=== PATIENT | female | born 1940 | race Caucasian/White ===

== ENCOUNTER → 2017-05-30 | Day surgery (SDC) | payer MEDICARE, OTHER ==
[2017-05-27 15:13] LABS: BASOPHILS # (AUTO) 0.1 (0.0-0.1); BASOPHILS % 0.7 % (0.0-1.0); EOSINOPHILS # (AUTO) 0.3 (0.0-0.4); EOSINOPHILS % 2.9 % (0.0-6.0); HEMATOCRIT 34.9 % (34.2-44.1); HEMOGLOBIN 11.2 g/dL (12.0-16.0); LYMPHOCYTES # (AUTO) 1.6 (1.0-3.2); LYMPHOCYTES % 18.2 % (18.0-39.1); MEAN CORPUSCULAR HEMOGLOBIN 30.8 pg (28-32); MEAN CORPUSCULAR HGB CONC 32.1 g/dL (31-35); MEAN CORPUSCULAR VOLUME 95.9 fL (81-99); MONOCYTES # (AUTO) 0.3 (0.2-0.8); MONOCYTES % 3.8 % (4.4-11.3); NEUTROPHILS # (AUTO) 6.7 (2.1-6.9); PLATELET COUNT 153 x10e3/uL (140-360); RED BLOOD COUNT 3.64 x10e6/uL (3.6-5.1); RED CELL DISTRIBUTION WIDTH 12.6 % (11.7-14.4)
[2017-05-27 15:26] LABS: ANION GAP 13.3 mmol/L (8-16); CALCIUM 8.9 mg/dL (8.4-10.2); CREATININE, SERUM 1.01 mg/dL (0.57-1.11); POTASSIUM 4.3 mmol/L (3.5-5.1)
--- NOTE | 2017-05-27 15:42 | Diagnostic Imaging Report ---
PROCEDURE: Frontal and lateral views of the chest. COMPARISON: Patients [facility], , CHEST 2 VIEWS, 03/29/2016, 12:57. INDICATIONS: PRE-OP FINDINGS: Lines/tubes: None. Lungs: The lungs are well inflated and clear. There is no evidence of pneumonia or pulmonary edema. Pleura: There is no pleural effusion or pneumothorax. Heart and mediastinum: The heart and the mediastinum are normal. Bones: No acute bony abnormality. Cervical fusion hardware is partially visualized. IMPRESSION: 1. No acute cardiopulmonary abnormalities. René Marvin M.D. Dictated by: René Marvin M.D. on 05/27/2017 at 15:49 Electronically approved by: René Marvin M.D. on 05/27/2017 at 15:49
[~2017-05-30] MED LIST: ALPRAZOLAM1 MG PO; ASPIRIN; B12; BELLADONNA/OPIUM 60 MG SUPP PR ONE; BOTOX100 UNIT IJ; BUPIVACAINE 0.25%/EPI 30ML SDV INJ ONE; BUSPIRONE; BUSPIRONE HCL5 MG PO; BUTALB-ACETAMIN-CAFF; CEFTRIAXONE SOD 1 GM VIAL ONE; CLARITIN10 M3 PO; COMPAZINE PO; CYANOCOBAL1000 MCG/M IM; CYMBALTA30 MG PO; DEXAMETHASONE SOD PHOS INJ 4 MG/ML VIAL ONE; FENTANYL CITRATE/PF 100MCG/2 ML INJ ONE; FIORICET PO; FIORINAL 50-321 EACH PO; GABAPENTIN100 MG PO; GENTAMICIN 80MG/NS IV ONE; GLIMEPIRIDE2 MG PO; GLYBURIDE5 MG PO; HYDROCODONE APAP; IMITREX25 MG PO; IOPAMIDOL 610MG/1ML 300 MG/ML VIAL IV ONE; LANTUS 3ML100 UNITS/ SQ; LANTUS100 UNITS/ SC; LIDOCAINE HCL 2% LOCAL INJ 5 ML SDV VIAL INJ ONE; LIOTHYRONINE SO5 MCG PO; LISINOPRIL10 MG PO; LISINOPRIL20 MG PO; MINOCYCLINE HCL50 MG PO; MS CONTIN15 MG PO; OMEPRAZOLE DR; ONDANSETRON HCL INJ 2 MG/ML VIAL ONE; PANTOPRAZOLE SO40 MG PO; PHAZYME; PHENERGAN25 M2 RC; PHENERGAN25 M3 PO; PHENERGAN25 MG/1 ML PO; PREVACID30 MG PO; PROCHLORPERAZIN10 MG PO; PROPOFOL IV EMULSION 10 MG/ML 20 ML VIAL ONE; ROBAXIN750 MG; SERTRALINE HCL100 MG PO; SEVOFLURANE INHAL SOLN 250 ML PEN BTL ONE; SIMVASTATIN5 MG PO; SLOW RELEASE47.5 MG PO; SUMATRIPTAN SUC25 MG PO; TIZANIDINE HCL4 M1 PO; TIZANIDINE HCL4 MG PO; TRAMADOL HCL50 M1 PO; XYZAL5 MG PO; Z ALPRAZOLAM PO; Z MORPHINE SULFAT; Z.0.ALEVE220 M1 PO; Z.0.AMITRIPTYLINE H2 PO; Z.0.COLACE50 MG PO; Z.0.GLIMEPIRIDE4 MG PO; Z.0.HYDROCHLOROTHIA2 PO; Z.0.HYOMAX-SL0.125 M; Z.0.JANUVIA100 MG PO; Z.0.LEVOTHYROXINE25 PO; Z.0.PROMETHAZINE HC2 PO; Z.0.SUMATRIPTAN SU10 PO; Z.0.ZOLOFT100 MG PO; Z.0.ZOLPIDEM TARTRA1 PO; Z.1.MECLIZINE HCL25 PO; ZIAC1 UDTAB GT; ZOLOFT50 MG PO; ZOLPIDEM TARTRAT5 MG PO
--- NOTE | 2017-07-10 05:37 | Operative Report ---
DATE OF PROCEDURE: May 30, 2017 PREOPERATIVE DIAGNOSES 1. Labial fusion. 2. Urinary tract infections. 3. History of urolithiasis. POSTOPERATIVE DIAGNOSES 1. Labial fusion. 2. Urinary tract infections. 3. History of urolithiasis. 4. Atrophic (senile) vaginitis. 5. Minimal rectocele. OPERATIONS PERFORMED 1. Takedown of labial fusion (separate procedure performed for the labial fusion). 2. Cystourethroscopy with bilateral ureteral catheterization and retrograde ureteropyelography (separate procedure performed for the urolithiasis and urinary tract infections). 3. Interpretation of retrograde ureteropyelography. 4. Pelvic examination under anesthesia. ANESTHESIA: General. COMPLICATIONS: None. CLINICAL SUMMARY: Rosenda Reynolds is a 76-year-old woman with the above preoperative diagnoses. She is brought for the above procedures. She is aware of the risks of bleeding, infection, injury to adjacent structures, need for additional procedures, and elected to proceed. OPERATIVE PROCEDURE IN DETAIL: Informed consent was verified. Rosenda Reynolds was properly identified and taken to the operating room and placed on the cystoscopy table in the supine position. Anesthesia was uneventfully begun. The patient was then carefully and gently repositioned in the dorsal lithotomy position with all pressure points well-padded. Her genitalia were prepared and draped in the usual sterile fashion. Attention was given the labia fusion. We gently teased the fused fusion apart at the level of the median raphe. This allowed the vagina to be opened to a normal anatomical consideration. Pelvic examination under anesthesia revealed a minimal rectocele that was cephalad in nature and severely atrophic (senile) vaginitis. Repreparation was performed. No abnormal palpable pelvic masses could be appreciated. We prepared the patient's genitalia some more, and then we easily placed the 22.5-Bulgarian cystoscope sheath with obturator in place into the patient's urethra and bladder was drained. Panendoscopy revealed hyperemia. There were no tumors. No stones and no diverticula. No suspicious mucosal lesions were identified. The ureteral catheter was used to cannulate each ureter and retrograde ureteropyelograms were performed. Interpretation of retrograde ureteropyelography. Contrast was instilled in a retrograde fashion bilaterally. There were no tumors. No stones and no diverticula. Unobstructed drainage was observed bilaterally fluoroscopically. The patient's bladder was then drained. Cystoscope was withdrawn. The patient was uneventfully reversed from anesthesia and taken to the recovery room in stable condition. Explicit postoperative instructions were given. Will follow the patient up in the office. Job#: [id number] RI cc:RADHA DHILLON MD
== END | disposition home or self-care (01) ==
LOC: OR 08:49
PROVIDERS: ATTEND Urology
DX: Q52.5 Fusion of labia (principal); N39.0 Urinary tract infection, site not specified; N31.9 Neuromuscular dysfunction of bladder, unspecified; N39.46 Mixed incontinence; N95.2 Postmenopausal atrophic vaginitis; N81.6 Rectocele; N32.89 Other specified disorders of bladder; Z87.442 Personal history of urinary calculi; E11.22 Type 2 diabetes mellitus with diabetic chronic kidney disease; I12.9 Hypertensive chronic kidney disease with stage 1 through stage 4 chronic kidney disease, or unspecified chronic kidney disease; N18.9 Chronic kidney disease, unspecified; R51 Headache; F32.9 Major depressive disorder, single episode, unspecified; Z01.810 Encounter for preprocedural cardiovascular examination; Z01.812 Encounter for preprocedural laboratory examination; Z01.818 Encounter for other preprocedural examination
CPT/HCPCS: 36415 ×2; 52005; 56441; 71020; 74420; 80048; 82948; 85025; 87086; 93005; C1758; J0696; J1100; J1580; J2001; J2405; Q9967

== ENCOUNTER 2017-07-21 09:21 | Outpatient (RCR) | payer MEDICARE, OTHER ==
[~2017-07-21 09:21] MED LIST changes: -BELLADONNA/OPIUM 60 MG SUPP PR ONE; -BUPIVACAINE 0.25%/EPI 30ML SDV INJ ONE; -CEFTRIAXONE SOD 1 GM VIAL ONE; -DEXAMETHASONE SOD PHOS INJ 4 MG/ML VIAL ONE; -FENTANYL CITRATE/PF 100MCG/2 ML INJ ONE; -GENTAMICIN 80MG/NS IV ONE; -IOPAMIDOL 610MG/1ML 300 MG/ML VIAL IV ONE; -LIDOCAINE HCL 2% LOCAL INJ 5 ML SDV VIAL INJ ONE; +MUPIROCIN 2% OINT 22 GM TUBE ONE; -ONDANSETRON HCL INJ 2 MG/ML VIAL ONE; -PROPOFOL IV EMULSION 10 MG/ML 20 ML VIAL ONE; -SEVOFLURANE INHAL SOLN 250 ML PEN BTL ONE
[2017-07-21] MEDS ORDERED: LIDOCAINE VISC 2% SOLN 15 ML UDC ONE (17:31)
== END 2017-07-23 ==
LOC: WCC 09:21
PROVIDERS: ATTEND Plastic Surgery
DX: B37.2 Candidiasis of skin and nail (principal); B37.89 Other sites of candidiasis; L89.322 Pressure ulcer of left buttock, stage 2; L89.312 Pressure ulcer of right buttock, stage 2; L89.152 Pressure ulcer of sacral region, stage 2; S01.00XA Unspecified open wound of scalp, initial encounter; I10 Essential (primary) hypertension; R32 Unspecified urinary incontinence; W01.198A Fall on same level from slipping, tripping and stumbling with subsequent striking against other object, initial encounter; Z74.01 Bed confinement status
CPT/HCPCS: 36415; 82948; G0463 ×3

== ENCOUNTER 2017-07-31 15:11 | Inpatient (IN) | payer MEDICARE, OTHER ==
[~2017-07-31] VITALS: Ht 172.7 cm; Wt 79.4 kg
[~2017-07-31 15:11] MED LIST changes: -MUPIROCIN 2% OINT 22 GM TUBE ONE
--- OUTSIDE RECORDS SUMMARY | 2017-07-31 15:17 | XMS REPORT | Continuity of Care Document ---
Author Author [facility] Organization [facility] Address [address] [place] [address] Phone Unavailable Care Team Providers Care Entomology Professor Name Role Phone RADHA DHILLON MD PCP Insurance Providers Guarantor Filemon Reynolds Address [address] [place] [address] Email [email or web address] Payer Medicare A & B Policy Number [id number] Subscriber's Name Filemon Reynolds Relationship 18 Self / Same As Patient Group Name RETIRED Effective Date 06 Payer Miscellaneous Ppo Policy Number [id number] Subscriber's Name Filemon Reynolds Relationship 18 Self / Same As Patient Group Number PLAN [id number] Group Name RETIRED Effective Date 06 Advance Directives Directive Response Recorded Date/Time Does the patient have an advance directive? No 08/26/16 10:57pm If yes, is advance directive on file with [facility]? No 08/26/16 10:57pm If not on file with [facility] will patient provide a copy? No 08/26/16 10:57pm Do you have a Directive to Physician? No 05/23/17 11:35am Do you have a Medical Power of Drier Operator Head? No 05/23/17 11:35am Do you have an out of hospital Do Not Resuscitate Order? No 05/23/17 11:35am Do you have any special needs we should be aware of? No 05/23/17 11:35am Do you have a support person here with you today? No 05/23/17 11:35am Did patient receive Notice of Privacy Practices? Yes 05/23/17 11:35am Did patient receive patient rights and responsibilities? Yes 05/23/17 11:35am Problems Medical Problem Onset Date Status Cellulitis of toe, left Unknown Medications Current Home Medications Medication Dose Units Route Directions Days Qty Instructions Start Date Alprazolam 1 Mg Tablet 1 Mg Oral As Needed 30 Tab 4 TIMES A DAY NEEDED Buspirone Hcl 5 Mg Tablet 5 Mg Oral Twice A Day 60 Tab Butalbital/Aspirin/Caffeine (Fiorinal 50-325-40 Mg Capsule) 1 Each Capsule 1 Cap Oral Daily as needed for Migraine Cyanocobalamin (Cyanocobalamin Injection) 1,000 Mcg/Ml Soln 1,000 Mcg Intramusc Weekly Duloxetine Hcl (Cymbalta) 30 Mg Capsule.dr 60 Mg Oral Twice A Day 30 Cap Gabapentin 100 Mg Capsule Unknown Dose Oral Daily Glimepiride 2 Mg Tablet 4 Mg Oral Twice A Day Glyburide 5 Mg Tablet 5 Mg Oral Daily 30 Tab Insulin Glargine (Lantus 3ML Pen) 100 Units/1 Ml Inj 6 Units Sub-Q Bedtime Liothyronine Sodium 5 Mcg Tablet 10 Mcg Oral Daily Lisinopril (Prinavil / Zestril) 20 Mg Tablet 40 Mg Oral Daily Morphine Sulfate (Ms Contin) 15 Mg Tablet.er 15 Mg Oral As Needed 3 TIMES A DAY NEEDED Pantoprazole Sodium (Protonix) 40 Mg Tablet.dr 40 Mg Oral Twice A Day Prochlorperazine Maleate 10 Mg Tablet 10 Mg Oral As Needed 4 TIMES A DAY NEEDED Sertraline Hcl (Zoloft) 50 Mg Tablet Unknown Dose Oral Daily 30 Tab Sertraline Hcl 100 Mg Tablet 200 Mg Oral Bedtime Simvastatin 5 Mg Tablet 5 Mg Oral Daily Sumatriptan Succinate 25 Mg Tablet 100 Mg Oral Daily as needed for Migraine 30 Tab Tizanidine Hcl 4 Mg Tablet 4 Mg Oral Three Times A Day as needed for Muscle Spasms Past Home Medications Medication Directions Ordered Status Amitriptyline Hcl 25 Mg Tablet, 25 Mg Oral Bedtime Discontinued Aspirin , 81 Mg Daily Discontinued B12 , 1 Ml Weekly Discontinued Botulinum Toxin Type A (Botox) 100 Unit Vial, 1 Each Injection Q3mos Discontinued Bustirone Hcl , 5 Mg Twice A Day Discontinued Glimepiride 4 Mg Tablet, 4 Mg Oral Twice A Day Discontinued Hctz/Bisoprolol (Ziac) 1 Udtab Tab, 1 Udtab G Tube Discontinued Hydrochlorothiazide 25 Mg Tablet, 25 Mg Oral Daily Discontinued Hydrocodone Apap , 7.5 Mg Q 6 Hours Discontinued Hyoscyamine Sulfate (Hyomax-Sl) 0.125 Mg Tab.subl, 0.125 Mg Route As Needed Discontinued Methocarbamol (Robaxin) 750 Mg Tab, 4 X Daily Discontinued Minocycline Hcl 50 Mg Capsule, 100 Mg Oral Four Times Daily Discontinued Omeprazole Dr , 20 Mg Twice A Day Discontinued Phazyme , As Needed Discontinued Promethazine Hcl (Phenergan) 25 Mg/1 Ml Ampul, 10 Mg Oral As Needed as needed for Nausea Discontinued Promethazine Hcl 25 Mg Tablet, 25 Mg Oral As Needed Discontinued Promethazine Hcl (Phenergan) 25 Mg Supp.rect, 25 Mg Rectal As Needed Discontinued Promethazine Hcl (Phenergan) 25 Mg Tablet, 25 Mg Oral D Discontinued Sitagliptin Phosphate (Januvia) 100 Mg Tablet, 100 Mg Oral Daily Discontinued Sumatriptan Succinate 100 Mg Tablet, 100 Mg Oral As Needed Discontinued Tramadol Hcl 50 Mg Tablet, 50 Mg Oral Every 8 Hours Discontinued Zolpidem Tartrate 5 Mg Tablet, 5 Mg Oral Bedtime Discontinued Zolpidem Tartrate 10 Mg Tablet, 10 Mg Oral Bedtime Discontinued Social History Social History Problem Response Recorded Date/Time Onset Date Status Hx Psychiatric Problems No 08/26/2016 10:57pm Not Applicable Not Applicable Hx Eating Disorder No 08/26/2016 10:57pm Not Applicable Not Applicable Hx Substance Use Disorder No 08/26/2016 10:57pm Not Applicable Not Applicable Hx Depression No 08/26/2016 10:57pm Not Applicable Not Applicable Hx Alcohol Use No 08/26/2016 10:57pm Not Applicable Not Applicable Hx Substance Use Treatment No 08/26/2016 10:57pm Not Applicable Not Applicable Hx Physical Abuse No 08/26/2016 10:57pm Not Applicable Not Applicable Hospital Discharge Instructions No hospital discharge instruction information available. Plan of Care Prescriptions See Medication Section Functional Status No functional status information available. Allergies, Adverse Reactions, Alerts Allergen Type Severity Reaction Status Last Updated Influenza Virus Vaccines Allergy Severe RESPIRATORY PROBLEMS Active Pentazocine Allergy Intermediate VOMITING Active 05/20/16 Butorphanol Allergy Unknown COUGHING/SOB Active 05/29/17 Histamine Allergy Unknown Active 05/20/16 Immunizations No immunization information available. Vital Signs Acute Vital Signs Vital Response Date/Time Temperature (Fahrenheit) 98.1 degrees F (97.6 - 99.5) 04/16/2017 3:10pm Pulse Pulse Rate (adult) 74 bpm (60 - 90) 04/16/2017 3:10pm Respiratory Rate 16 bpm (12 - 24) 04/16/2017 3:10pm Blood Pressure 145/87 mm Hg 04/16/2017 3:10pm Results Laboratory Results Test Name Result Units Flags Reference Collection Date/Time Result Date/ Time Comments White Blood Count 9.00 x10e3/uL 4.8-10.8 05/27/2017 3:05pm 05/27/2017 3 :14pm Red Blood Count 3.64 x10e6/uL 3.6-5.1 05/27/2017 3:05pm 05/27/2017 3: 14pm Hemoglobin 11.2 g/dL L 12.0-16.0 05/27/2017 3:05pm 05/27/2017 3:14pm Hematocrit 34.9 % 34.2-44.1 05/27/2017 3:05pm 05/27/2017 3:14pm Mean Corpuscular Volume 95.9 fL 81-99 05/27/2017 3:05pm 05/27/2017 3: 14pm Mean Corpuscular Hemoglobin 30.8 pg 28-32 05/27/2017 3:05pm 05/27/2017 3:14pm Mean Corpuscular Hemoglobin Concent 32.1 g/dL 31-35 05/27/2017 3:05pm 05/27/2017 3:14pm Red Cell Distribution Width 12.6 % 11.7-14.4 05/27/2017 3:05pm 2016 3:14pm Platelet Count 153 x10e3/uL 140-360 05/27/2017 3:05pm 05/27/2017 3: 14pm Neutrophils (%) (Auto) 74.0 % 38.7-80.0 05/27/2017 3:05pm 05/27/2017 3: 14pm Lymphocytes (%) (Auto) 18.2 % 18.0-39.1 05/27/2017 3:05pm 05/27/2017 3: 14pm Monocytes (%) (Auto) 3.8 % L 4.4-11.3 05/27/2017 3:05pm 05/27/2017 3: 14pm Eosinophils (%) (Auto) 2.9 % 0.0-6.0 05/27/2017 3:05pm 05/27/2017 3: 14pm Basophils (%) (Auto) 0.7 % 0.0-1.0 05/27/2017 3:05pm 05/27/2017 3:14pm IM GRANULOCYTES % 0.4 % 0.0-1.0 05/27/2017 3:05pm 05/27/2017 3:14pm Neutrophils # (Auto) 6.7 2.1-6.9 05/27/2017 3:05pm 05/27/2017 3:14pm Lymphocytes # (Auto) 1.6 1.0-3.2 05/27/2017 3:05pm 05/27/2017 3:14pm Monocytes # (Auto) 0.3 0.2-0.8 05/27/2017 3:05pm 05/27/2017 3:14pm Eosinophils # (Auto) 0.3 0.0-0.4 05/27/2017 3:05pm 05/27/2017 3:14pm Basophils # (Auto) 0.1 0.0-0.1 05/27/2017 3:05pm 05/27/2017 3:14pm Absolute Immature Granulocyte (auto 0.04 x10e3/uL 0-0.1 05/27/2017 3: 05pm 05/27/2017 3:14pm Sodium Level 142 mmol/L 136-145 05/27/2017 3:05pm 05/27/2017 3:34pm Potassium Level 4.3 mmol/L 3.5-5.1 05/27/2017 3:05pm 05/27/2017 3:34pm Chloride Level 106 mmol/L 98-107 05/27/2017 3:05pm 05/27/2017 3:34pm Carbon Dioxide Level 27 mmol/L 22-29 05/27/2017 3:05pm 05/27/2017 3: 34pm Anion Gap 13.3 mmol/L 8-16 05/27/2017 3:05pm 05/27/2017 3:34pm Blood Urea Nitrogen 19 mg/dL 7-26 05/27/2017 3:05pm 05/27/2017 3:34pm Creatinine 1.01 mg/dL 0.57-1.11 05/27/2017 3:05pm 05/27/2017 3:34pm BUN/Creatinine Ratio 19 6-25 05/27/2017 3:05pm 05/27/2017 3:34pm Estimat Glomerular Filtration Rate 53 ML/MIN L 60- 05/27/2017 3:05pm 10/2016 3:34pm Ranges were taken from the National Kidney Disease Education Program and the National [employer] literature. Reference ranges: 60 or greater: Normal 16-59 (for 3 consecutive months): Chronic kidney disease 15 or less: Kidney failure Glucose Level 238 mg/dL H 74-118 05/27/2017 3:05pm 05/27/2017 3:34pm Calcium Level 8.9 mg/dL 8.4-10.2 05/27/2017 3:05pm 05/27/2017 3:34pm Bedside Glucose 290 mg/dL H 70-120 07/07/2017 9:27am 07/07/2017 4:08pm Meter ID: [id number] Procedures Procedure Status Date Provider(s) CYSTOSCOPY & URETER CATHETER Completed 05/30/17 CHARLY NARANJO MD LYSIS OF LABIAL LESION(S) Completed 05/30/17 CHARLY NARANJO MD Computed tomography of brain without radiopaque contrast Active 04/16/17 ADRIANO CROOKS MD Computed tomography of cervical spine without contrast Active 04/16/17 ADRIANO CROOKS MD Ultrasound, renal Active 05/20/17 CHARLY NARANJO MD X-ray of chest, two views Active 05/27/17 CELIA MARTÍNEZ MD Encounters Encounter Location Arrival/Admit Date Discharge/Depart Date Attending Provider Discharged Recurring [facility] 07/21/17 9:21am 07/23/17 11:59pm ELBA CHONG MD Registered Surgical Day Care [facility] 05/30/17 8:49am CHARLY NARANJO MD Registered Clinic [facility] 05/20/17 2:00pm CHARLY NARANJO MD Discharged [facility] 05/12/17 8:24am 05/22/17 11:59pm ELBA CHONG MD Departed Emergency [facility] 04/16/17 12:30pm 04/16 3:20pm ADRIANO CROOKS MD Departed Emergency [facility] 10/17/16 2:08pm 8:06pm REDD SHETTY MD
--- OUTSIDE RECORDS SUMMARY | 2017-07-31 15:17 | XMS REPORT ---
Author Author [facility] Address Unknown Phone Unavailable Care Team Providers Care Biztalk Developer Name Role Phone CHARLY NARANJO Unavailable Unavailable DAKSHA ADRIANO Unavailable Unavailable Problems This patient has no known problems. Allergies, Adverse Reactions, Alerts This patient has no known allergies or adverse reactions. Medications This patient has no known medications. Results Test Description Test Time Test Comments Text Results Atomic Results Result Comments CHEST 2 VIEWS [facility] [address] [place], [place] [address] Patient Name: FILEMON GÓMEZ MR #: [id number] : 1940 Age/Sex: 76/F Req #: [id number] Adm Physician: Ordered by: CELIA MARTÍNEZ MD Report #: [id number] Location: OR Room/Bed: Procedure: [id number] DX/CHEST 2 VIEWS Exam Date: 05/27/17 Exam Time: 1450 REPORT STATUS: Signed PROCEDURE: Frontal and lateral views of the chest. COMPARISON: [facility], DX, CHEST 2 VIEWS, 2015, 12:57. INDICATIONS: PRE-OP FINDINGS: Lines/tubes: None. Lungs: The lungs are well inflated and clear. There is no evidence of pneumonia or pulmonary edema. Pleura: There is no pleural effusion or pneumothorax. Heart and mediastinum: The heart and the mediastinum are normal. Bones: No acute bony abnormality. Cervical fusion hardware is partially visualized. IMPRESSION: 1. No acute cardiopulmonary abnormalities. Tabatha Marvin M.D. Dictated by : Tabatha Marvin M.D. on 05/27/2017 at 15:49 Electronically approved by: Tabatha Marvin M.D. on 05/27/2017 at 15:49 Dictated By: TABATHA MARVIN MD 48 Transcribed By: MELCHOR on 05/27/171548 COPY TO: CELIA MARTÍNEZ MD US RENAL RETROPERITONEAL COMP [place] [address] Patient Name: FILEMON GÓMEZ MR #: [id number] : 1940 Age/Sex: 76/F Req #: [id number] Adm Physician: Ordered by: CHARLY NARANJO MD Report #: [id number] Location: Room/Bed: Procedure: [id number] US/US RENAL RETROPERITONEAL COMP Exam Date: Exam Time: REPORT STATUS: Signed PROCEDURE: US RETROPERITONEAL ( KIDNEY ). COMPARISON: [facility], CT, CT ABDOMEN AND PELVIS WITHOUT CONTRAST, 07/25/2009, 15:35. [facility], US, US RENAL (KIDNEY), 01/09/2014, 13:18. INDICATIONS: Calculus Of Kidney, UTI TECHNIQUE: Kramer-scale and color sonographic images of the bilateral kidneys and bladder where obtained in transverse and longitudinal planes. FINDINGS: RIGHT KIDNEY: 7.4 cm, cortex 1.1 cm, mildly irregular contour, which may reflect scarring. Cysts: None Solid masses: None Stones: None Hydronephrosis: None Echogenicity: Increased LEFT KIDNEY: 10.1 cm, cortex 2.1 cm Cysts: None Solid masses: None Stones: None Hydronephrosis: None Echogenicity: Normal Bladder: No focal lesions. Bilateral ureteral jets are identified. CONCLUSION: 1. Atrophic right kidney, with cortical thinning, likely scarring and increased cortical echogenicity, likely reflecting medical renal disease. 2. Left kidney is unremarkable. 3. No stones, hydronephrosis or obstruction, or solid masses Tabatha Marvin M.D. Dictated by: Tabatha Marvin M.D. on 05/20/2017 at 15:25 Electronically approved by: Tabatha Marvin M.D. on 05/20/2017 at 15:25 Dictated By: TABATHA MARVIN MD 1525 Transcribed By: MELCHOR on 05/20/17 1525 COPY TO: CHARLY NARANJO MD ABDOMEN-1VIEW (KUB) [place] [address] Patient Name: FILEMON GÓMEZ MR #: [id number] : 1940 Age/Sex: 76/F Req # : [id number] Adm Physician: Ordered by: CHARLY NARANJO MD Report #: [id number] Location: Room/Bed: Procedure: [id number] DX/ABDOMEN-1VIEW (KUB) Exam Date: 05/20/17 Exam Time : 1430 REPORT STATUS: Signed PROCEDURE: X-RAY ABDOMEN - KUB COMPARISON: [facility], CT, CT ABDOMEN AND PELVIS WITHOUT CONTRAST, 07/25/2009, 15:35. [facility], DX, ABDOMEN-1VIEW (KUB) , 09/16/2014, 21:52. INDICATIONS: CALCULUS OF THE KIDNEY FINDINGS: Nonobstructive bowel gas pattern. Mildly prominent air-filled stomach. 2 -3 mm linear radiopaque density projecting in the expected location of the mid right renal shadow. No other calcifications project over the right renal shadow, expected course of ureters or bladder. Stable bilateral phleboliths. Stable bilateral injection granulomas, with a conglomerate calcification in the soft tissues of the right flank. No acute bony abnormalities. Vertebroplasty changes at L1. CONCLUSION: 2-3 mm linear radiopaque density projecting over the right renal shadow may represent a nonobstructing calculus versus vascular calcification. No other new radiopaque densities project over the genitourinary system. Tabatha Marvin M.D. Dictated by: Tabatha Marvin M.D. on 05/20/2017 at 17:03 Electronically approved by: Tabatha Marvin M.D. on 05/20/2017 at 17:03 Dictated By: TABATHA MARVIN MD 02 Transcribed By: MELCHOR on 05/20/171702 COPY TO: CHARLY NARANJO MD CT CERVICAL SPINE WO [place] [address] Patient Name: FILEMON GÓMEZ MR #: [id number] : 1940 Age/Sex: 76/F Req # : [id number] Adm Physician: Ordered by: ADRIANO CROOKS MD Report #: [id number] Location: ER Room/Bed: Procedure: [id number] CT/CT CERVICAL SPINE WO Exam Date: 04/16/17 Exam Time: 1325 REPORT STATUS: Signed Head and cervical spine CTs without IV contrast History: Headache, trauma. Comparison studies: Brain MRI of 07/05 at 03/16/2008. Cervical spine MRI of 09/20/2010. Technique: Axial images were obtained from the brain and cervical spine. Coronal and sagittal images reconstructed from the axial data. Intravenous contrast: None Findings: Head CT: Scalp and bones: Left paramedian parietal scalp hematoma at the vertex is without underlying fracture. Extra-axial spaces : No masses. No fluid collections. Brain sulci: Mildly prominent. Ventricles: Mild compensatory dilatation. No hydrocephalus. Parenchyma: No mass, acute hemorrhage or acute cortical vascular insults. Confluent hypodensities in the supratentorial white matter are nonspecific but most compatible with chronic small vessel ischemic changes. Small chronic lacunar infarcts in the right putamen and left frontal parietal laguna radiata white matter. Sellar/suprasellar region: No abnormalities. Craniocervical junction: The foramen magnum is patent. No Chiari one malformation. Cervical spine CT: Fractures: None. Soft tissues: No gross acute abnormalities. Atlantoaxial articulation: Intact. Alignment: Mild cervical kyphosis with minimal anterolisthesis of C4 on C5 which is most likely degenerative in etiology. Cervicomedullary junction: No abnormalities. The foramen magnum is patent. Vertebrae: No infection or neoplasm. Postsurgical changes: Decompressive laminectomies at C4 and at C5 and changes of anterior cervical discectomy and fusion (ACDF) at C6-C7 with solid interbody C6-C7 osseous fusion. Degenerative changes: Mild degenerative changes at the C1-C2 lateral mass articulation with osteophyte production. Multilevel disc degeneration; mild from C2 to C4, moderate at C4-C5, severe at C5-C6 and mild at C6-C7. Uncovertebral arthrosis from C3 to C6 result in only mild foraminal stenosis. No significant canal stenosis. Incidental findings: Atherosclerotic calcifications in the bilateral cervical carotid bifurcations and carotid bulbs and in the carotid siphons. Anatomical variant retropulsion course of the internal carotid arteries at the C3 level. Bilateral lens replacements related to previous cataract surgery. IMPRESSION: Head CT: 1. Left paramedian parietal scalp hematoma at the vertex without underlying fracture. 2. No acute intracranial abnormalities or other changes from the previous brain MRI 07/05/2016 when allowing for differences in modality. 3. Mild generalized volume loss. 4. Moderate chronic small vessel ischemic changes with small chronic lacunar infarcts. Cervical spine CT: 1. No cervical spine fracture or acute subluxation. 2. Minimal degenerative anterolisthesis of C4 on C5 with associated cervical kyphosis at C4-C5. 3. Surgical changes of C6-C7 ACDF. 4. Degenerative changes as described Cannot adequately evaluate ligament, spinal cord and or vascular abnormalities on the basis of this examination. Signed by: Dr. Abram Orantes M.D. on 04/16/2017 2:53 PM Dictated By: ABRAM ORANTES MD 52 Transcribed By: SERVANDO on 04/16/171452 COPY TO: ADRIANO CROOKS MD CT BRAIN WO [place] [address] Patient Name: FILEMON GÓMEZ MR #: [id number] : 1940 Age/Sex: 76/F Req #: [id number] Adm Physician: Ordered by: ADRIANO CROOKS MD Report #: [id number] Location: ER Room/Bed: Procedure: [id number] CT/CT BRAIN WO Exam Date: 04/16/17 Exam Time: 1325 REPORT STATUS: Signed Head and cervical spine CTs without IV contrast History: Headache, trauma. Comparison studies: Brain MRI of 07/05/2016 at . Cervical spine MRI of 09/20/2010. Technique: Axial images were obtained from the brain and cervical spine. Coronal and sagittal images reconstructed from the axial data. Intravenous contrast: None Findings: Head CT: Scalp and bones: Left paramedian parietal scalp hematoma at the vertex is without underlying fracture. Extra-axial spaces: No masses. No fluid collections. Brain sulci: Mildly prominent. Ventricles : Mild compensatory dilatation. No hydrocephalus. Parenchyma: No mass, acute hemorrhage or acute cortical vascular insults. Confluent hypodensities in the supratentorial white matter are nonspecific but most compatible with chronic small vessel ischemic changes. Small chronic lacunar infarcts in the right putamen and left frontal parietal laguna radiata white matter. Sellar/suprasellar region: No abnormalities. Craniocervical junction: The foramen magnum is patent. No Chiari one malformation. Cervical spine CT : Fractures: None. Soft tissues: No gross acute abnormalities. Atlantoaxial articulation: Intact. Alignment: Mild cervical kyphosis with minimal anterolisthesis of C4 on C5 which is most likely degenerative in etiology. Cervicomedullary junction: No abnormalities. The foramen magnum is patent. Vertebrae: No infection or neoplasm. Postsurgical changes: Decompressive laminectomies at C4 and at C5 and changes of anterior cervical discectomy and fusion (ACDF) at C6-C7 with solid interbody C6-C7 osseous fusion. Degenerative changes: Mild degenerative changes at the C1-C2 lateral mass articulation with osteophyte production. Multilevel disc degeneration; mild from C2 to C4, moderate at C4-C5, severe at C5-C6 and mild at C6-C7. Uncovertebral arthrosis from C3 to C6 result in only mild foraminal stenosis. No significant canal stenosis. Incidental findings: Atherosclerotic calcifications in the bilateral cervical carotid bifurcations and carotid bulbs and in the carotid siphons. Anatomical variant retropulsion course of the internal carotid arteries at the C3 level. Bilateral lens replacements related to previous cataract surgery. IMPRESSION: Head CT: 1. Left paramedian parietal scalp hematoma at the vertex without underlying fracture. 2. No acute intracranial abnormalities or other changes from the previous brain MRI 07/05/2016 when allowing for differences in modality. 3. Mild generalized volume loss. 4. Moderate chronic small vessel ischemic changes with small chronic lacunar infarcts. Cervical spine CT: 1. No cervical spine fracture or acute subluxation. 2. Minimal degenerative anterolisthesis of C4 on C5 with associated cervical kyphosis at C4-C5. 3. Surgical changes of C6-C7 ACDF. 4. Degenerative changes as described Cannot adequately evaluate ligament, spinal cord and or vascular abnormalities on the basis of this examination. Signed by: Dr. Abram Orantes M.D. on 04/16/2017 2:53 PM Dictated By: ABRAM ORANTES MD [id number] Transcribed By: SERVANDO on 04/16/17 7562 COPY TO: ADRIANO CROOKS MD
[2017-07-31 17:45] VITALS: BP 182/71
[2017-07-31 18:14] VITALS: BP 182/71
[2017-07-31] MEDS ORDERED: SODIUM CHLORIDE FLUSH 10 ML SYR INJ PRN (18:15)
[2017-07-31 20:00] VITALS: BP 188/78
[2017-07-31] MEDS ORDERED: SODIUM CHLORIDE 0.9% 250ML 250 ML ONE (20:13)
[2017-07-31] MEDS: VANCOMYCIN 1GM/NS 250 ML 250 ML IV SCH (20:20)
[2017-07-31] MEDS: CIPROFLOXACIN 400 MG/D5W 200ML 200 ML IV SCH (21:49)
[2017-07-31] MEDS ORDERED: DEXTROSE 50% SYRINGE 50 ML IV PRN (22:00)
[2017-07-31] MEDS: INSULIN LISPRO 100 UNIT/1 ML 3ML VIAL SQ SCH ×2 (22:10→22:30)
[2017-07-31] MEDS ORDERED: CLONIDINE HCL0.1 MG PO (22:16)
[2017-07-31] MEDS ORDERED: ULTRAM50 MG PO (22:16)
[2017-07-31] MEDS ORDERED: SYNTHROID100 MCG PO (22:19)
[2017-07-31] MEDS ORDERED: LIOTHYRONINE SO5 MCG PO (22:19)
[2017-07-31] MEDS ORDERED: SUMATRIPTAN SUCCINATE 25 MG TAB PO PRN (22:30)
[2017-07-31] MEDS ORDERED: TIZANIDINE HCL 4 MG TAB PO PRN (22:30)
[2017-07-31] MEDS: CLONIDINE HCL 0.1 MG TAB PO PRN (23:00)
[2017-08-01] MEDS: LISINOPRIL 20 MG TAB PO SCH ×2 (02:18→09:11)
[2017-08-01] MEDS: TRAMADOL HCL 50 MG TAB PO PRN ×2 (02:19→16:52)
[2017-08-01 04:00] VITALS: BP 184/84
[2017-08-01] MEDS: CLONIDINE HCL 0.1 MG TAB PO PRN ×3 (05:15→21:02)
[2017-08-01] MEDS: LEVOTHYROXINE SODIUM 100 MCG TAB PO SCH (05:44)
[2017-08-01] MEDS: VANCOMYCIN 1GM/NS 250 ML 250 ML IV SCH ×2 (05:44→20:20)
[2017-08-01 06:49] LABS: BASOPHILS # (AUTO) 0.1 (0.0-0.1); BASOPHILS % 0.6 % (0.0-1.0); EOSINOPHILS # (AUTO) 0.3 (0.0-0.4); EOSINOPHILS % 3.2 % (0.0-6.0); HEMATOCRIT 32.7 % (34.2-44.1); HEMOGLOBIN 10.4 g/dL (12.0-16.0); LYMPHOCYTES # (AUTO) 1.4 (1.0-3.2); LYMPHOCYTES % 18.6 % (18.0-39.1); MEAN CORPUSCULAR HEMOGLOBIN 30.2 pg (28-32); MEAN CORPUSCULAR HGB CONC 31.8 g/dL (31-35); MEAN CORPUSCULAR VOLUME 95.1 fL (81-99); MONOCYTES # (AUTO) 0.4 (0.2-0.8); MONOCYTES % 5.4 % (4.4-11.3); NEUTROPHILS # (AUTO) 5.6 (2.1-6.9); NEUTROPHILS % 71.8 % (38.7-80.0); PLATELET COUNT 222 x10e3/uL (140-360); RED BLOOD COUNT 3.44 x10e6/uL (3.6-5.1)
[2017-08-01 07:20] LABS: ALANINE AMINOTRANSFERASE 15 IU/L (0-55); ALBUMIN 2.7 g/dL (3.5-5.0); ALBUMIN/GLOBULIN RATIO 0.7 (0.8-2.0); ALKALINE PHOSPHATASE 128 IU/L (40-150); BLOOD UREA NITROGEN 29 mg/dL (7-26); BUN/CREATININE RATIO 27 (6-25); CARBON DIOXIDE 26 mmol/L (22-29); CHLORIDE 107 mmol/L (98-107); CREATININE, SERUM 1.06 mg/dL (0.57-1.11); EST GLOMERULAR FILTRATION RATE 50 ML/MIN (60-); GLUCOSE 192 mg/dL (74-118); MAGNESIUM 1.8 MG/DL (1.3-2.1); SODIUM 140 mmol/L (136-145)
[2017-08-01 08:00] VITALS: BP 197/79
[2017-08-01] MEDS: GLIMEPIRIDE 2 MG TAB PO SCH ×2 (09:10→16:46)
[2017-08-01] MEDS: CIPROFLOXACIN 400 MG/D5W 200ML 200 ML IV SCH (09:10)
[2017-08-01] MEDS: BALSAM PERU/CASTOR OIL 60 GM OINT...G. TP SCH ×3 (09:10→16:46)
[2017-08-01] MEDS: DULOXETINE HCL 30 MG DELAYED RELEASE PO SCH ×2 (09:10→16:46)
[2017-08-01] MEDS: GABAPENTIN 100 MG CAP PO SCH ×3 (09:10→21:02)
[2017-08-01] MEDS: INSULIN LISPRO 100 UNIT/1 ML 3ML VIAL SQ SCH ×4 (09:10→21:02)
[2017-08-01] MEDS: LIOTHYRONINE SODIUM 5 MCG TAB PO SCH (09:10)
[2017-08-01 09:28] VITALS: BP 197/79
[2017-08-01] MEDS: MORPHINE SULFATE 15MG TAB CR PO PRN (09:47)
--- NOTE | 2017-08-01 09:52 | Consultation ---
DATE OF CONSULTATION: August 01, 2017 REASON FOR CONSULTATION: Left foot wound. HISTORY OF PRESENTING ILLNESS: This is a 77-year-old female with past medical history of type 2 diabetes, atherosclerotic heart disease, peripheral vascular disease, and hypertension, who is well known to the podiatry service. She was being followed as an outpatient for a left heel ulcer, which developed over the past month. The wound has significantly worsened and has not been improving over the last month. Recent wound cultures were taken in the office, which indicated MRSA and pseudomonas growth. Patient has a history of previous amputations to the left second digit. She was directly admitted yesterday for IV antibiotics and local wound care. Patient is seen at bedside this a.m. and is resting comfortably. She denies nausea, vomiting, fever, chills, chest pain, or shortness of breath. No other pedal complaints at this time. PAST MEDICAL HISTORY: Type 2 diabetes with peripheral neuropathy, atherosclerotic heart disease, peripheral vascular disease, hypertension. SURGICAL HISTORY: Partial left hallux amputation, partial left second digit amputation. ALLERGIES: NO KNOWN DRUG ALLERGIES. SOCIAL HISTORY: Denies smoking, denies drinking, denies any illicit drug usage. FAMILY HISTORY: Type 2 diabetes. MEDICATIONS: Per the chart. REVIEW OF SYSTEMS: Patient currently denies nausea, vomiting, fever, chills, chest pain, or shortness of breath. PHYSICAL EXAMINATION: GENERAL: Alert and oriented x3, in no apparent distress. VITAL SIGNS: Today, temperature is 97.1, heart rate 71, respiratory rate 19, blood pressure 184/84, pulse ox is 96% on room air. VASCULAR: Dorsalis pedis and posterior tibial pulses are faintly palpable. Capillary refill time is approximately 4 to 5 seconds to all remaining digits. Periwound erythema is noted with warmth to the patient's left heel. NEUROLOGICAL: Sensation is absent to light touch bilaterally. MUSCULOSKELETAL: Partial left hallux resection. Partial left second digit resection. DERMATOLOGICAL: Ulceration is noted to the patient's left heel, which is approximately 6 cm x 6 cm. The wound is fibrogranular. There is periwound erythema. There is no drainage. At this time, the wound is macerated to the borders. There is no ascending lymphangitis at this time. LABS: White blood cell count 7.7, hemoglobin 10.4, hematocrit 32.7, platelet count is 222,000. Sodium 140, potassium 5.0, CO2 26, BUN 29, creatinine 1.06, glucose 237. ASSESSMENT: 1. Left nonhealing ulceration with cellulitis to the heel. 2. Type 2 diabetes with peripheral neuropathy. 3. Peripheral vascular disease. PLAN: Patient was seen and evaluated. Discussed condition and treatment options with the patient in detail. Patient was recently seen by her vascular doctor and was told that circulation is adequate at this time. Patient has left heel ulcer as well as a sacral decubitus ulcer. Will order wound culture to the left heel with daily dressing changes with Betadine to improve maceration. Will also check Xrays. Recommend consultation for infectious disease for long-term antibiotics. Due to social concerns, patient is recommended to be transferred to a care home facility or long-term acute care facility for long-term antibiotics and wound care to the sacral ulcer as well as the heel ulcer. Will continue with Prevalon boots. Patient's family is requesting [facility]. The podiatry service will continue to monitor as an inpatient. Job#: [id number] DR DAVEY
--- NOTE | 2017-08-01 11:34 | Diagnostic Imaging Report ---
PROCEDURE:X-RAY LEFT FOOT, TWO VIEWS COMPARISON:None. INDICATIONS:ABCESS FINDINGS: Status post first and second ray amputations at the level of the proximal interphalangeal joints. Probable soft tissue ulcer over the heel. No subcutaneous gas. No underlying cortical erosive or destructive change. Posttraumatic deformity of the calcaneus. Multiple nonspecific soft tissue calcifications. Appropriate interval between the medial cuneiform and second metatarsal base in keeping with an intact Lisfranc ligament. CONCLUSION: Suspected soft tissue ulcer over the heel without underlying plain film evidence of osteomyelitis. If there is strong clinical concern, three-phase nuclear medicine bone scan or MRI of the left foot with and without contrast may be obtained for further evaluation. Amputation defects of the first and second rays as above. Posttraumatic deformity of the calcaneus. Dictated by: Samuel Kebede M.D. on 08/01/2017 at 11:44 Electronically approved by: Samuel Kebede M.D. on 08/01/2017 at 11:44
[2017-08-01 12:00] VITALS: BP 198/84
[2017-08-01] MEDS: ALPRAZOLAM 1 MG TAB PO PRN (13:03)
[2017-08-01 16:00] VITALS: BP 142/63
[2017-08-01] MEDS: NYSTATIN 15 GM POWDER UD BTL TOP SCH (16:46)
--- NOTE | 2017-08-01 16:48 | Consultation ---
DATE OF CONSULTATION: REASON FOR CONSULTATION: Infection in the foot. Thank you so much for asking me to see this patient. HISTORY OF PRESENT ILLNESS: This patient is a very pleasant 77-year-old white female, who has history of diabetes mellitus, history of atherosclerotic disease, history of peripheral vascular disease, history of hypertension and history of neuropathy with Charcot joint, who has been having ulcers on her left foot for a couple of months. The patient has been seeing Dr. Gibson for a couple of months for wound care but apparently is getting progressively worse. She had culture which showed MRSA as an outpatient. She has amputation of the left 2nd digit. She was directly admitted for IV antibiotic and local care. The patient was up in a chair and comfortable. Has no new complaints. History was taken mainly from the patient and by reviewing the record. PAST MEDICAL HISTORY: Diabetes mellitus, peripheral vascular disease, severe neuropathy, Charcot joint, atherosclerotic disease, coronary artery disease, hypertension. PAST SURGICAL HISTORY: Partial left hallux amputation. Partial left 2nd digit amputation. ALLERGIES: NKA. SOCIAL HISTORY: Does not smoke. No drug abuse or alcohol abuse. FAMILY HISTORY: Hypertension and diabetes. REVIEW OF SYSTEMS HEENT: There is no headache or visual changes. No hearing changes. GI: There is no nausea, no vomiting, no diarrhea. CARDIAC: There is no arrhythmia. NEUROLOGIC: No seizure activity. SKIN: No other rash. OTHER: The 14-point review of systems all negative. LABS: White count 7.7, hemoglobin 10. Sodium 140, potassium 5.0, creatinine 1.06. Liver enzymes are within normal limits. Her cultures are still pending. She had an x-ray of the foot which showed suspected soft-tissue ulcer over the heel without underlying plain film evidence of osteomyelitis. PHYSICAL EXAMINATION GENERAL: She is currently alert and oriented. Does not seem to be in acute distress. VITALS: Stable, afebrile currently. HEENT: She is not icteric. Normocephalic. NECK: Supple. No JVD. No thyromegaly. CHEST: Clear bilaterally. COR: S1 and S2, no murmur. ABDOMEN: Soft. There is no tenderness. IMPRESSION 1. Diabetic foot ulcer getting progressively worse. Will obtain MRI with contrast. I am concerned about osteomyelitis. Obtain sed rate and C-reactive protein. Agree with vancomycin for the time being. We will follow with you. Vascular workup has been done recently. Will discuss with Dr. Gibson. 2. Diabetes. 3. Hypertension. Job#: [id number] BIANCA
--- NOTE | 2017-08-01 19:09 | Diagnostic Imaging Report ---
TECHNIQUE: Magnetic resonance imaging of the LEFT foot (hindfoot) was performed WITHOUT injected contrast. Motion artifact partially limits sensitivity and specificity of the exam. HISTORY: Left heel blister, osteomyelitis COMPARISON: None available. DISCUSSION: Bone: A chronic appearing unhealed avulsion fracture from the dorsal aspect of the calcaneus, including the Achilles tendon insertion. No evidence of osteomyelitis. Joints: No dislocation. Trace tibiotalar and subtalar joint effusion and synovitis. Soft Tissues: Susceptibility artifacts within the plantar soft tissues of the foot. Diffusely decreased signal of the adipose tissue diffusely overlying the dorsal aspect of the calcaneus. No drainable fluid collection. Mild thickening and increased intrasubstance signal of the distal Achilles tendon, compatible with tendinosis. IMPRESSION: 1. No osteomyelitis. 2. No soft tissue abscess. 3. Chronic unhealed dorsal calcaneal fracture. Signed by: Dr. Lonnie Wheatley D.O., M.M.M. on 08/01/2017 7:05 PM
[2017-08-01 20:52] VITALS: BP 182/79
[2017-08-01] MEDS: INSULIN DETEMIR 100 UNIT/ML PEN SQ SCH (21:02)
[2017-08-01] MEDS: SERTRALINE HCL 100 MG TAB PO SCH (21:02)
[2017-08-02] VITALS: BP 133/58
[2017-08-02 04:00] VITALS: BP 174/83
[2017-08-02] MEDS: LEVOTHYROXINE SODIUM 100 MCG TAB PO SCH (05:32)
[2017-08-02] MEDS: VANCOMYCIN 1GM/NS 250 ML 250 ML IV SCH ×2 (05:32→18:15)
[2017-08-02] MEDS: CLONIDINE HCL 0.1 MG TAB PO PRN ×3 (06:03→20:29)
[2017-08-02] MEDS: MORPHINE SULFATE 15MG TAB CR PO PRN ×2 (07:10→23:45)
[2017-08-02 08:10] VITALS: BP 176/63
[2017-08-02] MEDS: NYSTATIN 15 GM POWDER UD BTL TOP SCH ×2 (08:33→16:27)
[2017-08-02] MEDS: GLIMEPIRIDE 2 MG TAB PO SCH ×2 (08:33→16:27)
[2017-08-02] MEDS: LISINOPRIL 20 MG TAB PO SCH (08:33)
[2017-08-02] MEDS: BALSAM PERU/CASTOR OIL 60 GM OINT...G. TP SCH ×3 (08:33→16:25)
[2017-08-02] MEDS: LIOTHYRONINE SODIUM 5 MCG TAB PO SCH (08:33)
[2017-08-02] MEDS: GABAPENTIN 100 MG CAP PO SCH ×3 (08:33→20:22)
[2017-08-02] MEDS: DULOXETINE HCL 30 MG DELAYED RELEASE PO SCH ×2 (08:33→16:27)
[2017-08-02] MEDS: INSULIN LISPRO 100 UNIT/1 ML 3ML VIAL SQ SCH ×4 (08:34→20:22)
[2017-08-02] MEDS: TRAMADOL HCL 50 MG TAB PO PRN ×2 (12:00→20:33)
[2017-08-02 12:05] VITALS: BP 177/90
[2017-08-02] MEDS: ALPRAZOLAM 1 MG TAB PO PRN (12:25)
[2017-08-02 17:38] VITALS: BP 166/70
[2017-08-02] MEDS ORDERED: VANCOMYCIN 1GM/NS 250 ML 250 ML IV SCH (19:00)
[2017-08-02 20:00] VITALS: BP 184/84
[2017-08-02] MEDS: INSULIN DETEMIR 100 UNIT/ML PEN SQ SCH (20:22)
[2017-08-02] MEDS: SERTRALINE HCL 100 MG TAB PO SCH (20:22)
[2017-08-03] VITALS (7 sets, daily range): BP systolic 126–216; BP diastolic 58–83
[2017-08-03] MEDS: ALPRAZOLAM 1 MG TAB PO PRN ×2 (04:16→22:07)
[2017-08-03] MEDS: CLONIDINE HCL 0.1 MG TAB PO PRN ×3 (04:16→20:25)
[2017-08-03] MEDS: LEVOTHYROXINE SODIUM 100 MCG TAB PO SCH (05:33)
[2017-08-03] MEDS: INSULIN LISPRO 100 UNIT/1 ML 3ML VIAL SQ SCH ×4 (08:18→20:24)
[2017-08-03] MEDS: GLIMEPIRIDE 2 MG TAB PO SCH ×2 (08:18→16:24)
[2017-08-03] MEDS: VANCOMYCIN 1GM/NS 250 ML 250 ML IV SCH (08:18)
[2017-08-03] MEDS: DULOXETINE HCL 30 MG DELAYED RELEASE PO SCH ×2 (08:18→16:24)
[2017-08-03] MEDS: GABAPENTIN 100 MG CAP PO SCH ×3 (08:18→20:24)
[2017-08-03] MEDS: LIOTHYRONINE SODIUM 5 MCG TAB PO SCH (08:18)
[2017-08-03] MEDS: LISINOPRIL 20 MG TAB PO SCH (08:18)
[2017-08-03] MEDS: BALSAM PERU/CASTOR OIL 60 GM OINT...G. TP SCH ×2 (08:43→16:24)
[2017-08-03] MEDS: NYSTATIN 15 GM POWDER UD BTL TOP SCH ×2 (08:43→16:24)
--- NOTE | 2017-08-03 09:49 | Progress Note ---
DATE: August 03, 2017 SUBJECTIVE: This 77-year-old female with a past medical history of type-2 diabetes, atherosclerotic heart disease, peripheral vascular disease, and hypertension is seen at bedside this a.m. and is seen resting comfortably. Denies nausea, vomiting, fever, chills, chest pain, shortness of breath. No new pedal complaints at this time. OBJECTIVE VITAL SIGNS: Today, temperature is 97.9, heart rate 70, respiratory rate 20, blood pressure 165/70. Pulse ox is 97% on room air. PROBLEM-FOCUSED LOWER EXTREMITY PHYSICAL EXAMINATION VASCULAR: Dorsalis pedis and posterior tibial pulses are faintly palpable. Capillary refill time is approximately 4 to 5 seconds to all remaining digits. Periwound erythema is noted with warmth to the patient's left heel, which is improved since previous visit. NEUROLOGICAL: Sensation is absent to light touch bilaterally. MUSCULOSKELETAL: Partial left hallux resection. Partial left second digit resection. DERMATOLOGICAL: Ulceration is noted to the posterior plantar aspect of the patient's left heel, which is approximately 6 cm x 6 cm. The wound is fibrogranular. Periwound erythema is improving. No drainage. The wound is drier tender naphthalene. The wound is less macerated to the borders. No ascending lymphangitis at this time. LABS: Glucose 217. Wound culture: No growth after 24 hours. IMAGING: MRI reveals no evidence of osteomyelitis. No soft-tissue abscess is noted. Chronic posterior calcaneal fracture. PLAN: The patient was seen and evaluated. Discussed condition and treatment options with the patient in detail. The patient is currently on IV vancomycin. Infectious disease has been consulted and we appreciate the help. Will continue daily dressing changes with Betadine wet to dry to improve maceration and drainage. X-rays are negative for osteomyelitis. MRI negative for osteomyelitis and abscess formation. The patient had a chronic nonhealing wound to the left foot. Due to social concerns, will recommend long-term IV antibiotics and be transferred to a nursing facility for antibiotics and wound care. Continue Prevalon boots at this time. The patient's family is requesting to be at [facility] facility. Job#: [id number]
[2017-08-03] MEDS: MORPHINE SULFATE 15MG TAB CR PO PRN (17:51)
[2017-08-03] MEDS: SERTRALINE HCL 100 MG TAB PO SCH (20:24)
[2017-08-03] MEDS: INSULIN DETEMIR 100 UNIT/ML PEN SQ SCH (20:24)
[2017-08-04] VITALS: BP 159/67
[2017-08-04 04:00] VITALS: BP 153/68
[2017-08-04] MEDS: LEVOTHYROXINE SODIUM 100 MCG TAB PO SCH (05:27)
[2017-08-04 08:00] VITALS: BP 142/66
[2017-08-04] MEDS: GABAPENTIN 100 MG CAP PO SCH ×2 (08:20→14:51)
[2017-08-04] MEDS: LIOTHYRONINE SODIUM 5 MCG TAB PO SCH (08:20)
[2017-08-04] MEDS: LISINOPRIL 20 MG TAB PO SCH (08:20)
[2017-08-04] MEDS: GLIMEPIRIDE 2 MG TAB PO SCH ×2 (08:45→16:48)
[2017-08-04] MEDS: NYSTATIN 15 GM POWDER UD BTL TOP SCH ×2 (09:00→16:00)
[2017-08-04] MEDS: BALSAM PERU/CASTOR OIL 60 GM OINT...G. TP SCH ×2 (09:00→16:00)
[2017-08-04] MEDS: VANCOMYCIN 1GM/NS 250 ML 250 ML IV SCH (09:16)
[2017-08-04] MEDS: CLONIDINE HCL 0.1 MG TAB PO PRN (11:38)
[2017-08-04] MEDS: DULOXETINE HCL 30 MG DELAYED RELEASE PO SCH ×2 (11:46→16:55)
[2017-08-04] MEDS: INSULIN LISPRO 100 UNIT/1 ML 3ML VIAL SQ SCH ×3 (11:46→17:10)
[2017-08-04 12:00] VITALS: BP 197/82
[2017-08-04 13:55] VITALS: BP 197/82
--- NOTE | 2017-08-04 15:11 | Progress Note ---
DATE: August 04, 2017 PODIATRY PROGRESS NOTE SUBJECTIVE: This is a 77-year-old female with past medical history of type 2 diabetes, atherosclerotic heart disease, peripheral vascular disease, hypertension, is seen at bedside this p.m. and seemed resting comfortably. Denies nausea, vomiting, fever, chills, chest pain or shortness of breath. No new pedal complaints at this time. OBJECTIVE VITAL SIGNS: Today temperature is 96.5, heart rate 83, respiratory rate 18, blood pressure 197/82, pulse ox is 96% on room air. PROBLEM-FOCUSED LOWER EXTREMITY PHYSICAL EXAMINATION VASCULAR: Dorsalis pedis and posterior tibial pulses are faintly palpable. Capillary refill time is 4 to 5 seconds to all remaining digits. Periwound erythema and warmth are improved to the patient's left heel. NEUROLOGICAL: Sensation is absent to light touch bilaterally. MUSCULOSKELETAL: Partial left hallux resection. Partial left 2nd digit resection. DERMATOLOGICAL: Ulceration is noted to the posterior plantar aspect of the patient's left heel. The wound is again fibrogranular. Erythema and warmth are improving. There is no drainage at this time. The wound is approximately 75% granular, 25% fibrotic. No ascending lymphangitis at this time. LABS: Glucose 123. Vancomycin trough is 18.8. Wound culture negative after 36 hours. ASSESSMENT 1. Left foot ulcer. No evidence of osteomyelitis. 2. Type 2 diabetes, peripheral neuropathy. 3. Peripheral vascular disease. PLAN: Patient was seen and evaluated. Discussed condition and treatment options with the patient in detail. I will continue local wound care with Betadine wet-to-dry and IV vancomycin. Infectious Disease has been consulted for IV antibiotics. Previous wound culture in the office was positive for MRSA and pseudomonas. Due to worsening of the wound as an outpatient and the social concerns, it was recommended the patient be admitted for long-term antibiotics and local wound care. Will continue Prevalon boots at this time and transfer to long-term acute care facility. Patient's family is requesting [facility]. Podiatry service will continue to monitor as an inpatient. Job#: [id number]
[2017-08-04] MEDS: TRAMADOL HCL 50 MG TAB PO PRN (16:03)
[2017-08-04 16:43] VITALS: BP 189/79
[2017-08-04] MEDS ORDERED: AMLODIPINE BESYLATE 10 MG TAB PO SCH (17:00)
[2017-08-04] MEDS: ALPRAZOLAM 1 MG TAB PO PRN (18:00)
[2017-08-05] MEDS ORDERED: AMLODIPINE BESYLATE 10 MG TAB PO SCH (17:00)
== END 2017-08-04 18:54 | DRG 637 ==
LOC: MED/SURG2 15:11
PROVIDERS: ADMIT Family Medicine; ATTEND Family Medicine
DX: E11.621 Type 2 diabetes mellitus with foot ulcer (principal); L89.153 Pressure ulcer of sacral region, stage 3; L97.409 Non-pressure chronic ulcer of unspecified heel and midfoot with unspecified severity; E11.40 Type 2 diabetes mellitus with diabetic neuropathy, unspecified; E11.51 Type 2 diabetes mellitus with diabetic peripheral angiopathy without gangrene; E11.610 Type 2 diabetes mellitus with diabetic neuropathic arthropathy; I10 Essential (primary) hypertension; E03.9 Hypothyroidism, unspecified; B95.62 Methicillin resistant Staphylococcus aureus infection as the cause of diseases classified elsewhere; I25.10 Atherosclerotic heart disease of native coronary artery without angina pectoris; Z89.422 Acquired absence of other left toe(s); F41.9 Anxiety disorder, unspecified; Z79.4 Long term (current) use of insulin; Z79.52 Long term (current) use of systemic steroids; B96.5 Pseudomonas (aeruginosa) (mallei) (pseudomallei) as the cause of diseases classified elsewhere; M84.475G Pathological fracture, left foot, subsequent encounter for fracture with delayed healing
CPT/HCPCS: 36415; 80053; 80202; 82948; 83735; 85025; 87071; 87205; 97139; J3370; J7050